=== PATIENT | female | born 1955 | race Caucasian/White ===

== ENCOUNTER 2022-06-28 08:59 | Emergency (ER) | payer MEDICARE ==
[2022-06-28 09:31] VITALS: BP 145/96; PULSE 60; RESP 20; TEMP 97.9
--- NOTE | 2022-06-28 10:12 | XR ---
EXAMINATION TYPE: XR foot complete LT, XR ankle complete LT DATE OF EXAM: 06/28/2022 CLINICAL HISTORY: pain TECHNIQUE: Frontal, lateral and oblique images of the left foot and ankle are obtained. COMPARISON: None. FINDINGS: There is fracture at the base of the fifth metatarsal without significant displacement. Mil d soft tissue swelling seen. Ankle mortise is intact. The joint spaces appear within normal limits. The overlying soft tissue appears unremarkable. IMPRESSION: Fracture at the base of the fifth metatarsal.
--- NOTE | 2022-06-28 10:23 | ED ---
Lower Extremity Injury HPI - General Chief Complaint: Extremity Injury, Lower Stated Complaint: Foot injury Time Seen by Provider: 06/28/22 09:33 Source: patient, family, RN notes reviewed Mode of arrival: wheelchair Limitations: no limitations - History of Present Illness Initial Comments: This is a 66-year-old female who presents to the emergency department for left foot pain. Patient states that when she was walking around today, she tripped in a hole and fell on her left foot. She has been unable to put any weight on the foot since this occurred. She is visiting from out of town but has seen an orthopedic provider in the past from [place], [place]. She has not taken anything for her pain since this occurred. Denies any fevers, chills, sore throat, cough, dyspnea, chest pain, palpitations, abdominal pain, nausea, vomiting, diarrhea, back pain, or headaches. MD Complaint: ankle injury, foot injury Injury: Ankle: Left, Foot: Left Place: street/outdoors [place] With: weight bearing, movement Context: fall - Related Data Previous Rx's Medication Instructions Recorded Acetaminophen-Codeine 300-30mg 1 tab PO Q6H PRN 3 Days #12 tablet 06/28/22 [Tylenol w/codeine #3] Allergies Allergy/AdvReac Type Severity Reaction Status Date / Time No Known Allergies Allergy Verified 06/28/22 09:30 Review of Systems ROS Statement: Those systems with pertinent positive or pertinent negative responses have been documented in the HPI. ROS Other: All systems not noted in ROS Statement are negative. Past Medical History Past Medical History: Coronary Artery Disease (CAD), CVA/TIA, Hypertension History of Any Multi-Drug Resistant Organisms: None Reported Past Surgical History: No Surgical Hx Reported Past Psychological History: No Psychological Hx Reported Smoking Status: Never smoker Past Alcohol Use History: Occasional Past Drug Use History: None Reported General Exam Limitations: no limitations General appearance: alert, in no apparent distress Head exam: Present: atraumatic, normocephalic, normal inspection Respiratory exam: Present: normal lung sounds bilaterally. Absent: respiratory distress, wheezes, rales, rhonchi, stridor Cardiovascular Exam: Present: regular rate, normal rhythm, normal heart sounds. Absent: systolic murmur, diastolic murmur, rubs, gallop, clicks Extremities exam: Present: other (Ecchymosis, tenderness, and swelling over the fourth and fifth metacarpals on the left.) Neurological exam: Present: alert, oriented X3, CN II-XII intact Psychiatric exam: Present: normal affect, normal mood Skin exam: Present: warm, dry, intact, normal color. Absent: rash Course Vital Signs 06/28/22 09:26 Temperature 97.9 F Pulse Rate 60 Respiratory 20 Rate Blood Pressure 145/96 O2 Sat by Pulse 98 Oximetry Medical Decision Making - Medical Decision Making This is a 66-year-old female who presents to the emergency department for a left foot injury. X-rays obtained revealing a fracture at the base of the fifth metacarpal on the left. Discussed splint application with the patient, however she requested to have a postop shoe instead. Patient's foot was wrapped with an Antonino bandage and she was given a postop shoe. Crutches were provided as well. Instructed her to avoid putting any weight on the foot until cleared by orthopedics. She will follow up with orthopedics in [place], [place], where she is from when she returns home next week. A disc of her x-ray images was provided as well since she is from out of [facility]. Advised Tylenol as needed for pain relief (cannot take NSAIDs). Short course of Tylenol #3 provided for severe pain. Instructed her to take this sparingly and to avoid driving when taking it, as it may be sedating. Also instructed her to apply ice for 10-15 minutes every 2-3 hours. Return precautions reviewed in depth, the patient is instructed to return to the emergency department with any new, worsening, or concerning symptoms. Patient verbalized understanding. This case was discussed in detail with the attending ED physician. Presentation, findings, and treatment plan discussed in detail as well. - Radiology Data Radiology results: report reviewed, image reviewed Disposition Clinical Impression: Fracture of fifth metacarpal bone Disposition: HOME SELF-CARE Instructions (If sedation given, give patient instructions): Crutch Instructions (ED), Foot Fracture in Adults (ED), Post Surgical Shoe (ED) Additional Instructions: Return to the emergency department with any new, worsening, or concerning symptoms. Take the Tylenol and Tylenol #3 as needed for pain. Be aware that the tylenol #3 may be sedating. Apply ice for 10-15 minutes every 2-3 hours. Follow-up with an orthopedic provider when you return home. Use the crutches and avoid weight bearing until cleared by orthopedics. Prescriptions: Acetaminophen-Codeine 300-30mg [Tylenol w/codeine #3] 1 tab PO Q6H PRN 3 Days #12 tablet PRN Reason: Pain Is patient prescribed a controlled substance at d/c from ED?: Yes When asked, does pt state using other controlled substances?: No If prescribed controlled substance>3 days was MAPS reviewed?: Prescribed <3 Days Referrals: None,Stated [REFERRING] - 1-2 days
== END 2022-06-28 11:31 | disposition home or self-care (01) ==
LOC: EC 08:59
DX: S92.352A Displaced fracture of fifth metatarsal bone, left foot, initial encounter for closed fracture (principal); I10 Essential (primary) hypertension; I25.10 Atherosclerotic heart disease of native coronary artery without angina pectoris; Z86.73 Personal history of transient ischemic attack (TIA), and cerebral infarction without residual deficits; W01.0XXA Fall on same level from slipping, tripping and stumbling without subsequent striking against object, initial encounter; Y92.410 Unspecified street and highway as the place of occurrence of the external cause
CPT/HCPCS: 99283